=== PATIENT | female | born 2000 | race Caucasian/White ===

== ENCOUNTER 2023-12-22 14:29 | Observation (INO) | payer BC ==
[2023-12-22 14:57] VITALS: RESP 18
[2023-12-22 17:40] LABS: BASO % 0.4 % (0-2.0); EOS % 3.7 % (0-4.5); HEMOGLOBIN 11.8 GM/dL (10.7-15.3); LYMPH % 20.4 % (8-40); MCH 29.6 pg (25.7-33.7); MCHC 32.9 g/dl (32.0-36.0); MEAN CELL VOLUME 90.1 fl (80-96); MEAN PLT VOLUME 7.4 fl (7.5-11.1); MONO % 8.4 % (3.8-10.2); NEUT % 67.1 % (42.8-82.8); PLATELET COUNT 586 10^3/uL (134-434); RBC 3.99 M/mm3 (3.60-5.2); RDW 13.7 % (11.6-15.6); WHITE BLOOD COUNT 12.6 K/mm3 (4.0-10.0)
[2023-12-22 18:04] LABS: INR 0.96 (0.83-1.09); PROTHROMBIN TIME (PATIENT) 10.9 SEC (9.7-13.0)
[2023-12-22 18:05] LABS: POTASSIUM 5.2 mmol/L (3.5-5.1)
[2023-12-22 18:07] LABS: ALBUMIN 2.8 g/dl (3.4-5.0); CALCIUM 8.5 mg/dL (8.5-10.1)
[2023-12-22 18:08] LABS: BLOOD UREA NITROGEN 6.5 mg/dL (7-18); MAGNESIUM 2.4 mg/dL (1.8-2.4)
[2023-12-22 18:11] LABS: CREATININE 0.6 mg/dL (0.55-1.3)
[2023-12-22 18:12] LABS: BILIRUBIN,TOTAL 0.3 mg/dL (0.2-1); TOT PROT 6.6 g/dl (6.4-8.2)
[2023-12-22] MEDS ORDERED: LIDOCAINE HCL/PF 1% SDV 5ML VIAL ONE (18:41)
[2023-12-22] MEDS ORDERED: VANCOMYCIN 1 GRAM (PRE-DOCKED) 1,000 MG/250 ML BAG IVPB ONE (19:25)
[2023-12-22] MEDS ORDERED: CEFTRIAXONE 1 GM/50 ML BAG ONE (19:25)
[2023-12-22] MEDS: CEFTRIAXONE 1,000 MG in DEXTROSE 5%-WATER - 50 ML IVPB ONE (19:56)
[2023-12-22] MEDS: VANCOMYCIN 1,000 MG in DEXTROSE 5%-WATER - 250 ML IVPB ONE (20:59)
[2023-12-22] MEDS ORDERED: ACETAMINOPHEN 325 MG TABLET (FP) ONE (22:20)
[2023-12-22] MEDS ORDERED: ENOXAPARIN NA (PORCINE) 40 MG/0.4 ML DISP.SYRIN SQ ONE (22:23)
[2023-12-22] MEDS: ACETAMINOPHEN 325 MG TABLET (FP) PO PRN (22:32)
[2023-12-23 00:25] VITALS: BMI 24.2
[2023-12-23 09:40] LABS: BASO % 0.4 % (0-2.0); EOS % 4.6 % (0-4.5); HEMATOCRIT 32.3 % (32.4-45.2); LYMPH % 35.1 % (8-40); MCH 30.3 pg (25.7-33.7); MCHC 33.9 g/dl (32.0-36.0); MEAN CELL VOLUME 89.2 fl (80-96); MEAN PLT VOLUME 7.2 fl (7.5-11.1); MONO % 10.3 % (3.8-10.2); NEUT % 49.6 % (42.8-82.8); PLATELET COUNT 464 10^3/uL (134-434); RBC 3.63 M/mm3 (3.60-5.2); RDW 13.2 % (11.6-15.6); WHITE BLOOD COUNT 8.7 K/mm3 (4.0-10.0)
[2023-12-23 09:59] LABS: POTASSIUM 4.2 mmol/L (3.5-5.1)
[2023-12-23] MEDS: ENOXAPARIN NA (PORCINE) 40 MG/0.4 ML DISP.SYRIN SQ SCH (09:59)
[2023-12-23 10:10] LABS: ALBUMIN 2.3 g/dl (3.4-5.0); BLOOD UREA NITROGEN 4.8 mg/dL (7-18); CALCIUM 8.4 mg/dL (8.5-10.1); MAGNESIUM 2.1 mg/dL (1.8-2.4)
[2023-12-23 10:13] LABS: CREATININE 0.6 mg/dL (0.55-1.3); PHOSPHOROUS 4.1 mg/dL (2.5-4.9); URIC ACID 2.6 mg/dL (2.6-7.2)
[2023-12-23 10:14] LABS: BILIRUBIN,TOTAL 0.3 mg/dL (0.2-1)
[2023-12-23 10:15] LABS: TOT PROT 5.4 g/dl (6.4-8.2)
[2023-12-23] MEDS: CEFTRIAXONE 2 GM in DEXTROSE 5%-WATER 100 ML IVPB SCH (14:20)
[2023-12-23] MEDS: VANCOMYCIN/WATER FOR INJ (PEG) 1,000 MG/200 ML BAG IVPB SCH (15:23)
[2023-12-24 07:55] LABS: BASO % 0.5 % (0-2.0); EOS % 4.7 % (0-4.5); HEMATOCRIT 32.8 % (32.4-45.2); HEMOGLOBIN 10.9 GM/dL (10.7-15.3); LYMPH % 32.2 % (8-40); MCH 29.9 pg (25.7-33.7); MCHC 33.2 g/dl (32.0-36.0); MEAN CELL VOLUME 90.1 fl (80-96); MEAN PLT VOLUME 7.2 fl (7.5-11.1); MONO % 9.8 % (3.8-10.2); NEUT % 52.8 % (42.8-82.8); PLATELET COUNT 500 10^3/uL (134-434); RBC 3.64 M/mm3 (3.60-5.2); RDW 13.3 % (11.6-15.6); WHITE BLOOD COUNT 9.7 K/mm3 (4.0-10.0)
[2023-12-24 08:04] LABS: POTASSIUM 4.3 mmol/L (3.5-5.1)
[2023-12-24 08:06] LABS: CALCIUM 8.5 mg/dL (8.5-10.1)
[2023-12-24 08:07] LABS: ALBUMIN 2.4 g/dl (3.4-5.0); BLOOD UREA NITROGEN 6.9 mg/dL (7-18)
[2023-12-24 08:10] LABS: CREATININE 0.6 mg/dL (0.55-1.3)
[2023-12-24 08:11] LABS: BILIRUBIN,TOTAL 0.3 mg/dL (0.2-1); TOT PROT 5.7 g/dl (6.4-8.2)
[2023-12-24 08:58] VITALS: BP 105/55; PULSE 72; TEMP 98.8
== END 2023-12-24 14:16 | disposition home or self-care (01) ==
LOC: JER 14:29 → JERBED 20:13 → UNDOADMOB 20:13 → OBSVTOIN 22:01 → INTOOBSV 22:01 → J6S 23:16 → JERBED 23:16 → J6S 12-23 09:57 → JERBED 12-23 09:57 → J6S 12-24 09:21
PROVIDERS: ADMIT Internal Medicine; ATTEND Internal Medicine
PROC: 3E03329 Introduction of Other Anti-infective into Peripheral Vein, Percutaneous Approach (ICD-10-PCS; principal; 2023-12-23)
PROC: 3E023GC Introduction of Other Therapeutic Substance into Muscle, Percutaneous Approach (ICD-10-PCS; 2023-12-23)
DX: M25.471 Effusion, right ankle (principal); L03.115 Cellulitis of right lower limb; K51.90 Ulcerative colitis, unspecified, without complications; R26.89 Other abnormalities of gait and mobility
CPT/HCPCS: 36415; 73610-TC-RT-FY; 73630-TC-RT-FY; 80053; 83735; 84100; 84550; 84703; 85025; 85610; 85651; 86038; 86140; 86618; 87040; 87070; 87075; 87205; 93005; 93010; 99285-25; G0378